=== PATIENT | female | born 1945 | race Caucasian/White ===

== ENCOUNTER 2024-05-23 11:38 | Emergency (ER) | payer MEDICARE, BC ==
[2024-05-23 12:41] LABS: BASOPHILS ABSOLUTE AUTO 0.05 10^3/uL (0.00-0.50); BASOPHILS PERCENT AUTO 0.4 % (0-1); EOSINOPHILS ABSOLUTE AUTO 0.02 10^3/uL (0.00-1.50); EOSINOPHILS PERCENT AUTO 0.2 % (0-6); HEMATOCRIT 35.4 % (37.0-47.0); HEMOGLOBIN 11.4 g/dL (12.0-16.0); IMMATURE GRAN ABSOLUTE AUTO 0.04 10^3/uL (0.00-0.49); IMMATURE GRAN PERCENT AUTO 0.3 % (0.0-4.9); LYMPHOCYTES ABSOLUTE AUTO 1.73 10^3/uL (0.60-5.00); LYMPHOCYTES PERCENT AUTO 14.8 % (24-44); MEAN CORPUSCULAR HEMOGLOBIN 29.2 pg (27.0-32.0); MEAN CORPUSCULAR HGB CONC 32.2 g/dL (32.0-36.0); MEAN CORPUSCULAR VOLUME 90.8 fL (83.0-97.0); MONOCYTES ABSOLUTE AUTO 0.95 10^3/uL (0.00-1.50); MONOCYTES PERCENT AUTO 8.1 % (0-10); NEUTROPHILS ABSOLUTE AUTO 8.92 x10^3/uL (1.80-8.00); NEUTROPHILS PERCENT AUTO 76.2 % (41-71); PLATELET COUNT,PLT 293 10^3/uL (150-400); WHITE BLOOD CELL COUNT,WBC 11.7 10^3/uL (4.0-11.0)
[2024-05-23 13:33] LABS: POTASSIUM,K 4.2 mEq/L (3.5-5.0)
[2024-05-23 13:34] LABS: ALBUMIN 3.3 g/dL (3.4-5.0); EST CRCL DRUG DOSING (CG) 33.3 mL/min; MAGNESIUM 2.1 mg/dL (1.8-2.4)
[2024-05-23] MEDS: Take Home: Acetaminophen/HYDROcodone 325-5 MG, 2 Tab Pack PO ONE (14:16)
== END 2024-05-23 13:45 | disposition home or self-care (01) ==
LOC: CC.ED 11:38
DX: S42.295A Other nondisplaced fracture of upper end of left humerus, initial encounter for closed fracture (principal); W18.30XA Fall on same level, unspecified, initial encounter
CPT/HCPCS: 36415; 71046; 73060-LT; 80051; 80053; 82040; 82550; 82565; 82947; 83735; 84484; 84520; 85025; 85730; 99283; 99284; A9270-GY